=== PATIENT | male | born 1980 | race Caucasian/White ===

== ENCOUNTER 2016-12-28 23:56 | Emergency (ER) | payer MEDICAID ==
[~2016-12-28] VITALS: Ht 175.3 cm; Wt 70.0 kg
[2016-12-29 00:11] VITALS: BP 140/84; PULSE 108; RESP 24; TEMP 98.2; O2SAT 98
[2016-12-29] MEDS ORDERED: SODIUM CHLOR 0.9% 1000 ML INJ 1,000 ML IV SCH (00:19)
--- NOTE | 2016-12-29 00:19 | PD ---
HPI Chief Complaint: OD/ Ingestion Time Seen by Provider: 00:14 Travel History International Travel<30 days: No Contact w/Intl Traveler<30days: No Traveled to known affect area: No History of Present Illness HPI 36-year-old male brought in by ambulance after an unintentional heroin overdose. The patient admits to drinking alcohol today. He states he has been clean from illicit drugs for quite some time, however decided to buy [place] today [place]. [place] and an O2 saturation of 50% with a GCS of 3. IV was established and he was given 4 mg of IV Narcan by EMS with significant improvement in mental status. Upon arrival to the emergency department the patient is awake and alert and oriented to person, place, and time. He denies suicidal ideation. PFSH Past Medical History Medical History: Denies Significant Hx Tetanus Vaccination: Unknown Influenza Vaccination: No Past Surgical History Surgical History: No Previous Surgery Social History Alcohol Use: No Tobacco Use: Yes Substance Use: Yes (HEROIN) Allergies-Medications (Allergen,Severity, Reaction): Coded Allergies: No Known Allergies (Unverified , 12/29/16) Reported Meds & Prescriptions Reported Meds & Active Scripts Active No Active Prescriptions or Reported Medications Review of Systems Except as stated in HPI: all other systems reviewed are Neg Physical Exam Narrative GENERAL: Well-developed, well-nourished, awake, alert, shivering, no apparent distress. SKIN: Focused skin assessment warm/dry. HEAD: Atraumatic. Normocephalic. EYES: Pupils equal and round. No scleral icterus. No injection or drainage. ENT: Mucous membranes pink and moist. NECK: Trachea midline. No JVD. CARDIOVASCULAR: Regular rate and rhythm. No murmur appreciated. RESPIRATORY: No accessory muscle use. Clear to auscultation. Breath sounds equal bilaterally. GASTROINTESTINAL: Abdomen soft, non-tender, nondistended. MUSCULOSKELETAL: No obvious deformities. No clubbing. No cyanosis. No edema. NEUROLOGICAL: Awake and alert. No obvious cranial nerve deficits. Motor grossly within normal limits. Normal speech. PSYCHIATRIC: Appropriate mood and affect; insight and judgment normal. Data Data Last Documented VS Vital Signs Date Time Temp Pulse Resp B/P Pulse Ox O2 Delivery O2 Flow Rate FiO2 12/29/16 00:21 20 98 Room Air 12/29/16 00:13 108 12/29/16 00:11 98.2 140/84 Orders Complete Blood Count With Diff (12/29/16 00:19) Comprehensive Metabolic Panel (12/29/16 00:19) Iv Access Insert/Monitor (12/29/16 00:19) Ecg Monitoring (12/29/16 00:19) Oximetry (12/29/16 00:19) Sodium Chlor 0.9% 1000 Ml Inj (Ns 1000 M (12/29/16 00:19) Sodium Chloride 0.9% Flush (Ns Flush) (12/29/16 00:30) Alcohol (Ethanol) (12/29/16 00:19) Labs Laboratory Tests Test 12/29/16 00:25 White Blood Count 8.9 TH/MM3 Red Blood Count 4.75 MIL/MM3 Hemoglobin 15.4 GM/DL Hematocrit 45.4 % Mean Corpuscular Volume 95.5 FL Mean Corpuscular Hemoglobin 32.5 PG Mean Corpuscular Hemoglobin 34.0 % Concent Red Cell Distribution Width 12.9 % Platelet Count 189 TH/MM3 Mean Platelet Volume 9.5 FL Neutrophils (%) (Auto) 51.8 % Lymphocytes (%) (Auto) 36.9 % Monocytes (%) (Auto) 6.5 % Eosinophils (%) (Auto) 3.9 % Basophils (%) (Auto) 0.9 % Neutrophils # (Auto) 4.6 TH/MM3 Lymphocytes # (Auto) 3.3 TH/MM3 Monocytes # (Auto) 0.6 TH/MM3 Eosinophils # (Auto) 0.3 TH/MM3 Basophils # (Auto) 0.1 TH/MM3 CBC Comment DIFF FINAL Differential Comment Sodium Level 140 MEQ/L Potassium Level 3.7 MEQ/L Chloride Level 105 MEQ/L Carbon Dioxide Level 20.4 MEQ/L Anion Gap 15 MEQ/L Blood Urea Nitrogen 18 MG/DL Creatinine 1.34 MG/DL Estimat Glomerular Filtration 61 ML/MIN Rate Random Glucose 264 MG/DL Calcium Level 8.7 MG/DL Total Bilirubin 0.3 MG/DL Aspartate Amino Transf 26 U/L (AST/SGOT) Alanine Aminotransferase 22 U/L (ALT/SGPT) Alkaline Phosphatase 77 U/L Total Protein 8.1 GM/DL Albumin 4.3 GM/DL Ethyl Alcohol Level 99 MG/DL [facility] Medical Decision Making Medical Screen Exam Complete: Yes Emergency Medical Condition: Yes Differential Diagnosis Unintentional heroin overdose, alcohol intoxication, metabolic abnormality Narrative Course Vital signs reviewed. CBC is unremarkable. CMP is remarkable for random glucose 264, creatinine 1.34, GFR 61, otherwise unremarkable. Alcohol level is 99. Patient was given a liter of normal saline IV. He has remained awake and easily arousable while in the emergency department after being observed for 2 hours. He will be allowed to sleep it off in the emergency department. Again he is denying suicidal ideation. Overdose was unintentional. Diagnosis Primary Impression: Accidental heroin overdose Qualified Code: T40.1X1A - Accidental overdose of heroin, initial encounter Additional Impression: Alcohol intoxication Qualified Code: F10.920 - Alcoholic intoxication without complication Referrals: [facility] Additional Instructions: Follow-up with [facility] for help with alcohol/polysubstance abuse. Scripts No Active Prescriptions or Reported Meds Disposition: 01 DISCHARGE HOME Condition: Stable Kolton Sarabia MD Dec 29, 2016 00:19
[2016-12-29 00:21] VITALS: RESP 20; O2SAT 98
[2016-12-29] MEDS ORDERED: SODIUM CHLORIDE 0.9% FLUSH 10 ML FLUSH IV FLUSH PRN (00:30)
[2016-12-29 00:43] LABS: AUTOMATED NEUTROPHIL # 4.6 TH/MM3 (1.8-7.7); BASOPHIL # 0.1 TH/MM3 (0-0.2); BASOPHIL % 0.9 % (0.0-2.0); EOSINOPHIL # 0.3 TH/MM3 (0-0.4); EOSINOPHIL % 3.9 % (0.0-4.0); HEMATOCRIT 45.4 % (39.0-51.0); HEMO FLAGS DIFF FINAL; LYMPH % 36.9 % (9.0-44.0); LYMPHOCYTE # 3.3 TH/MM3 (1.0-4.8); MEAN CELL VOLUME 95.5 FL (80.0-100.0); MEAN CORPUSCULAR HEMOGLOBIN 32.5 PG (27.0-34.0); MONO % 6.5 % (0.0-8.0); NEUT % 51.8 % (16.0-70.0); PLATELET COUNT 189 TH/MM3 (150-450); RED BLOOD COUNT 4.75 MIL/MM3 (4.50-5.90); RED CELL DISTRIBUTION WIDTH 12.9 % (11.6-17.2); WHITE BLOOD COUNT 8.9 TH/MM3 (4.0-11.0)
[2016-12-29 00:58] LABS: ALKALINE PHOSPHATASE 77 U/L (45-117); TOTAL BILIRUBIN ADULT 0.3 MG/DL (0.2-1.0)
[2016-12-29 00:59] LABS: ALCOHOL 99 MG/DL (0-5); ALT (GPT) 22 U/L (12-78); ANION GAP 15 MEQ/L (5-15); AST (GOT) 26 U/L (15-37); BICARBONATE 20.4 MEQ/L (21.0-32.0); BLOOD UREA NITROGEN 18 MG/DL (7-18); CHLORIDE 105 MEQ/L (98-107); GLOMERULAR FILTRATION RATE 61 ML/MIN (>89); POTASSIUM 3.7 MEQ/L (3.5-5.1); SODIUM (NA) 140 MEQ/L (136-145)
[2016-12-29] MEDS ORDERED: LORazepam 2 MG/ML VIAL IV PUSH ONE ×2 (02:00→02:15)
[2016-12-29] MEDS ORDERED: SODIUM CHLOR 0.9% 1000 ML INJ 1,000 ML IV ONE (02:00)
[2016-12-29 03:29] VITALS: BP 107/64; PULSE 106; RESP 14; O2SAT 100
--- NOTE | 2016-12-29 08:19 | EKG ---
Date Performed: 12/29/2016 Time Performed: 00:14:39 PTAGE: 36 years EKG: SINUS TACHYCARDIA BORDERLINE RIGHT AXIS DEVIATION ABNORMAL RHYTHM ECG NO PREVIOUS TRACING DOCTOR: Andrew Haq Interpretating Date/Time 12/29/2016 08:18:38
== END 2016-12-29 05:06 | disposition home or self-care (01) ==
LOC: NEPC 23:56
DX: T40.1X1A Poisoning by heroin, accidental (unintentional), initial encounter (principal); R40.0 Somnolence; F10.920 Alcohol use, unspecified with intoxication, uncomplicated; Y90.4 Blood alcohol level of 80-99 mg/100 ml; F11.90 Opioid use, unspecified, uncomplicated; F17.290 Nicotine dependence, other tobacco product, uncomplicated
CPT/HCPCS: 80053; 80307; 85025; 93005; 96361; 96374; 99284; J2060; J7030